=== PATIENT | male | born 1985 | race Asian ===

== ENCOUNTER 2017-05-31 15:15 | Emergency (ER) | payer OTHER ==
[~2017-05-31] VITALS: Ht 180.3 cm; Wt 65.8 kg
[2017-05-31 15:29] VITALS: BP 130/71
--- NOTE | 2017-05-31 17:13 | NUR ---
Patient ambulated to [facility] with family to be evaluated as fast track by Dr. Parker. RN evaluating patient.
[2017-05-31] MEDS ORDERED: NACL 0.9% 1,000 ML IV ONE (17:25)
[2017-05-31] MEDS ORDERED: ONDANSETRON 4 MG/2 ML VIAL IVP ONE (17:25)
--- NOTE | 2017-05-31 17:56 | NUR ---
PATIENT IS 32 YO MALE BIB SELF FOR NAUSEA, VOMITINIG AND DIARRHEA. AWAKE AND ALERT ABLE TO AMBULATE NO ACTIVE VOMITING, TO OVER FLOW FOR MD NORIEGA. IV ESTABLISHED AND MEDS GIVEN.
[2017-05-31 18:46] VITALS: BP 120/80
--- NOTE | 2017-05-31 18:46 | NUR ---
IV removed, catheter intact and site benign. Applied folded 4x4 gauze and tape to stop bleeding.
--- NOTE | 2017-05-31 18:46 | NUR ---
Patient discharged with v/s stable. Written and verbal after care instructions given and explained. Patient verbalized understanding. Ambulatory with steady gait. All questions addressed prior to discharge. Advised to follow up with PMD.
== END 2017-05-31 18:46 | disposition home or self-care (01) ==
LOC: MED 15:15
DX: R11.2 Nausea with vomiting, unspecified (principal); R19.7 Diarrhea, unspecified; Z88.0 Allergy status to penicillin
CPT/HCPCS: 96361; 96374; 99284; J2405; J7030